=== PATIENT | male | born 1980 ===

== ENCOUNTER 2025-08-30 15:16 | Emergency (ER) | payer OTHER, SELFPAY ==
[2025-08-30 15:51] VITALS: BP 108/69; PULSE 65; RESP 16; TEMP 36.7; O2SAT 99; BMI 175.1
--- NOTE | 2025-08-30 15:55 | DI.RAD.S_ITS ---
PROCEDURE: XR FOOT RT MIN 3V INDICATIONS: dumbell fell on foot TECHNIQUE: 3 views of the foot were acquired. COMPARISON: None. FINDINGS: Bones: Nondisplaced hairline fracture of the 2nd metatarsal distal shaft. No suspicious bony lesions. Soft tissues: No tibiotalar joint effusion. Achilles tendon appears normal. IMPRESSION: Nondisplaced hairline fracture the 2nd metatarsal distal shaft. Dictated by: Jarrell Pope M.D. on 08/30/2025 at 16:43 Approved by: Jarrell Pope M.D. on 08/30/2025 at 16:44
--- NOTE | 2025-08-30 18:23 | ED.LOWEXIN ---
HPI - Extremity Injury (Lower) <Jessy Larson PA-C - Last Filed: 08/30/25 19:27> General Chief Complaint: Extremity Injury, Lower Stated Complaint: R foot injury Time Seen by Provider: 08/30/25 18:23 Source: patient Mode of arrival: Ambulatory History of Present Illness HPI Narrative: Mr. Sanchez is a very pleasant 45-year-old male with no reported past medical history who presents to the emergency department for right foot pain after dropping a dumbbell on it. Reports that the dumbbell was about 6 kg. Now has pain on the top of his right foot. No deformities, no wounds. No prior injuries to the foot. He has pain with walking. No other concerns. No medications prior to arrival. Related Data Allergies Allergy/AdvReac Type Severity Reaction Status Date / Time No Known Allergies Allergy Verified 08/30/25 15:54 Review of Systems <Jessy Larson PA-C - Last Filed: 08/30/25 19:27> Review of Systems ROS Unobtainable: All systems reviewed & are unremarkable except as noted in HPI and below Patient History <Jessy Larson PA-C - Last Filed: 08/30/25 19:27> Social History Smoking Status: Never smoker Smoking Status: Never smoker Exam <Jessy Larson PA-C - Last Filed: 08/30/25 19:27> Narrative Exam Narrative: GENERAL: 45 year old patient appears stated age. Well-developed patient, in no acute distress. HEAD: Atraumatic. Normocephalic. NECK: Trachea midline. Cervical ROM intact. CARDIOVASCULAR: Regular rate RESPIRATORY: ?Nonlabored respirations. ?Speaking in clear, full sentences. EXTREMITIES: Tenderness to palpation of RIGHT dorsal midfoot, metatarsal 2/3 region. Brisk cap refill on the toes. Strong PT pulse. No open wounds or deformities. No tenderness to palpation of medial or lateral malleolus, 5th metatarsal or plantar aspect of the foot. NEURO: AOx3. ?Clear speech. ? SKIN: No rash or erythema of visible areas Initial Vital Signs Initial Vital Signs: Vital Signs Temperature 98.0 F 08/30/25 15:51 Pulse Rate 65 08/30/25 15:51 Respiratory Rate 16 08/30/25 15:51 Blood Pressure 108/69 08/30/25 15:51 Pulse Oximetry 99 08/30/25 15:51 Oxygen Delivery Method Room Air 08/30/25 15:51 <DO Iain Couch Last Filed: 08/30/25 22:47> Initial Vital Signs Initial Vital Signs: Vital Signs Temperature 98.0 F 08/30/25 15:51 Pulse Rate 65 08/30/25 15:51 Respiratory Rate 16 08/30/25 15:51 Blood Pressure 108/69 08/30/25 15:51 Pulse Oximetry 99 08/30/25 15:51 Oxygen Delivery Method Room Air 08/30/25 15:51 Course <Jessy Larson PA-C - Last Filed: 08/30/25 19:27> Orders Ordered: ED Orders 08/30/25 15:55 XR foot RT min 3V Stat Discontinued Medications Acetaminophen (Acetaminophen 325 Mg Tablet) 975 mg PO NOW ONE Stop: 08/30/25 18:31 Last Admin: 08/30/25 19:01 Dose: 975 mg Documented By: RB Ibuprofen (Ibuprofen 400 Mg Tablet) 400 mg PO NOW ONE Stop: 08/30/25 18:31 Last Admin: 08/30/25 19:02 Dose: 400 mg Documented By: RB Vital Signs Vital signs: Vital Signs - 8 hr 08/30/25 15:51 08/30/25 19:23 Temperature 98.0 F 97.9 F Pulse Rate 65 68 Respiratory Rate 16 16 Blood Pressure 108/69 112/64 Pulse Oximetry 99 99 Oxygen Delivery Method Room Air Room Air <DO Iain Couch Last Filed: 08/30/25 22:47> Orders Ordered: ED Orders 08/30/25 15:55 XR foot RT min 3V Stat Discontinued Medications Acetaminophen (Acetaminophen 325 Mg Tablet) 975 mg PO NOW ONE Stop: 08/30/25 18:31 Last Admin: 08/30/25 19:01 Dose: 975 mg Documented By: RB Ibuprofen (Ibuprofen 400 Mg Tablet) 400 mg PO NOW ONE Stop: 08/30/25 18:31 Last Admin: 08/30/25 19:02 Dose: 400 mg Documented By: RB Vital Signs Vital signs: Vital Signs - 8 hr 08/30/25 15:51 08/30/25 19:23 Temperature 98.0 F 97.9 F Pulse Rate 65 68 Respiratory Rate 16 16 Blood Pressure 108/69 112/64 Pulse Oximetry 99 99 Oxygen Delivery Method Room Air Room Air MDM - Extremity Injury (Lower) <Jessy Larson PA-C - Last Filed: 08/30/25 19:27> Medical Records Medical records narrative: None available Imaging Data XR R Foot: Radiologist's Impression: PROCEDURE: XR FOOT RT MIN 3V INDICATIONS: dumbell fell on foot TECHNIQUE: 3 views of the foot were acquired. COMPARISON: None. FINDINGS: Bones: Nondisplaced hairline fracture of the 2nd metatarsal distal shaft. No suspicious bony lesions. Soft tissues: No tibiotalar joint effusion. Achilles tendon appears normal. IMPRESSION: Nondisplaced hairline fracture the 2nd metatarsal distal shaft. Dictated by: Jarrell Pope M.D. on 08/30/2025 at 16:43 Approved by: Jarrell Pope M.D. on 08/30/2025 at 16:44 [facility] Narrative Medical decision making narrative: 45-year-old male with no reported past medical history who presents to the emergency department for right foot pain after dropping a dumbbell on it. Differential diagnosis includes but isn't limited to right foot contusion, crush injury, fracture, sprain, strain, hematoma, etc. On exam patient is in no acute distress, nontoxic appearing, vital signs within normal limits, right foot neurovascularly intact. He has focal tenderness to palpation of the dorsal right midfoot where he dropped a dumbbell. X-ray obtained reveals nondisplaced hairline fracture of the 2nd metatarsal distal shaft. Patient was ambulating prior to arrival but does have discomfort. We will treat with right orthopedic boot, crutches, rice therapy, Orthopedic follow up. Patient does not live in the area so would prefer to follow up with his own orthopedic doctor, I advised that he touch base with his primary care doctor 1st. He was treated with ibuprofen and acetaminophen. Patient verbalized understanding all information agreeable with the plan. He is stable for discharge home. Discharge Plan Departure Patient Disposition: Home Clinical Impression: Metatarsal bone fracture Qualifiers: Encounter type: initial encounter Metatarsal bone: second Fracture type: closed Fracture alignment: nondisplaced Laterality: right Qualified Code(s): S92.324A - Nondisplaced fracture of second metatarsal bone, right foot, initial encounter for closed fracture Instructions: DI for Foot Fracture Activity Restrictions/Additional Instructions: Dear Mr. Hinton, Thank you for coming to the emergency department. I am very sorry that you sustained an injury to her right foot today. Your x-ray did reveal that you broke the 2nd metatarsal bone in your foot. Please use crutches as needed in addition to the orthopedic walking boot. This walking boot needs to stay on so that you can heal. Please only take the boot off to shower. Please follow up with an orthopedic doctor within the next 1-2 weeks. Please use RICE therapy for your pain in addition to ibuprofen/acetaminophen. Rest the painful area. Ice the area of pain/swelling for at least 15 minutes, 4x a day. Compress the area of swelling using a brace, wrap, or splint if applied. Elevate the painful or swollen extremity by supporting it above the level of the heart with pillows when sitting or laying. Please take Ibuprofen (Motrin/Advil) or Acetaminophen (Tylenol) for pain. These are available over the counter. You may take Ibuprofen 600 mg every 8 hours with food for pain. You may also take Acetaminophen 650 mg every 4-6 hours for pain. Do not exceed 3000 mg of Tylenol a day as this can cause liver damage. Do not drink alcohol with either of these medications. Please follow up with your primary care doctor within the next 2-3 days for ER follow-up. (If you do not have a PCP you can call [phone]. ?to schedule an appointment with an [facility] Primary Care Provider) IF YOU DEVELOP ANY NEW OR WORSENING SYMPTOMS, RETURN TO THE ER! Please read the attached instructions, they highlight more specific treatments and interventions for you at home. Thank you for letting me participate in your care, Jessy Larson PA-C Referrals: Shelia Onofre DO [Physician, Orthopedic Surgery] Referral Note: R foot fracture Stand Alone Forms: Patient Portal/API ED Sign-out <Rosalee Jacobson DO - Last Filed: 08/30/25 22:47> Cosign ED Attending Malika Attestation: I was immediately available in the department for consultation.
[2025-08-30] MEDS: ACETAMINOPHEN 325 MG TABLET 975 MG PO (19:01)
[2025-08-30] MEDS: IBUPROFEN 400 MG TABLET PO (19:02)
[2025-08-30 19:23] VITALS: BP 112/64; PULSE 68; RESP 16; TEMP 36.6; O2SAT 99
== END 2025-08-30 19:18 | disposition home or self-care (01) ==
PROVIDERS: Emergency Provider Physician Assistant
DX: S92.324A Nondisplaced fracture of second metatarsal bone, right foot, initial encounter for closed fracture (principal); W22.8XXA Striking against or struck by other objects, initial encounter
CPT/HCPCS: 73630; 99283